=== PATIENT | male | born 1960 | race Caucasian/White ===

== ENCOUNTER 2018-05-26 02:24 | Inpatient (IN) ==
[2018-05-26] MEDS ORDERED: Sod Chloride 0.9% Inj 1,000 ML IV.CONT ONE (04:40)
[2018-05-26 05:29] LABS: Baso # (Auto) 0.1 th/mm3 (0.0-0.2); Baso % (Auto) 0.7 % (0.0-2.0); Eos # (Auto) 0.1 th/mm3 (0.0-0.4); Eos % (Auto) 1.5 % (0.0-4.0); Hematocrit 34.7 % (39.0-51.0); Hemoglobin 11.7 gm/dL (13.0-17.0); Lymph # (Auto) 1.5 th/mm3 (1.0-4.8); Lymph % (Auto) 19.1 % (9.0-44.0); Mean Corpuscular HGB Conc 33.8 % (32.0-36.0); Mean Corpuscular Hemoglobin 30.2 pg (27.0-34.0); Mean Corpuscular Volume 89.4 fL (80.0-100.0); Mean Platelet Volume 7.1 fL (7.0-11.0); Mono # (Auto) 0.9 th/mm3 (0.0-0.9); Mono % (Auto) 11.6 % (0.0-8.0); Neut # (Auto) 5.2 th/mm3 (1.8-7.7); Neut % (Auto) 67.1 % (16.0-70.0); Platelet Count 261 th/mm3 (150-450); Red Blood Count 3.88 mil/mm3 (4.50-5.90); Red Cell Distribution Width 13.6 % (11.6-17.2); White Blood Count 7.7 th/mm3 (4.0-11.0)
[2018-05-26] MEDS ORDERED: ALPRAZolam 0.25 MG Tablet PO PRN (05:36)
[2018-05-26 05:42] LABS: Activated Partial Thrombo Time 25.3 sec (24.3-30.1); INR 1.1 Ratio; Prothrombin Time 10.8 sec (9.8-11.6)
[2018-05-26 05:48] LABS: Alanine Aminotransferase 24 U/L (12-78); Anion Gap 11 meq/L (5-15); Aspartate Aminotransferase 16 U/L (15-37); Blood Urea Nitrogen 46 mg/dL (7-18); Calcium 9.1 mg/dL (8.5-10.1); Chloride 96 meq/L (98-107); Glomerular Filtration Rate 8 mL/min (>89); Glucose,Random 117 mg/dL (74-106); Phosphorus 4.6 mg/dL (2.5-4.9); Potassium 4.2 meq/L (3.5-5.1); Sodium 139 meq/L (136-145)
[2018-05-26 05:51] LABS: Alkaline Phosphatase 71 U/L (45-117); Total Protein 8.3 g/dL (6.4-8.2)
--- NOTE | 2018-05-26 05:52 | P.HPIM ---
History of Present Illness Primary Care Physician: UNKNOWN History of Present Illness: 58-year-old male with a history of end-stage renal disease on dialysis, hyperlipidemia, gout, hypertension, GERD, anxiety who presents for elective renal transplant. Patient says he is feeling well. Denies any chest pain, shortness of breath, nausea, vomiting, lightheadedness, dizziness, fevers, chills, dysuria. Patient denies any history of exertional chest pain. Patient's heart rate is elevated. He says he has been anticipating surgery for over 2 years and is a little anxious. He just discontinued Xanax about a week ago, and feels this may help with his anxiety. Inpatient Certification: I certify that the inpatient services were ordered in accordance with Medicare regulations governing the order. This includes certification that hospital inpatient services are reasonable and necessary and in the case of services not specified as inpatient-only under 42 CFR 419.22(n), that they are appropriately provided as inpatient services in accordance to with the 2-midnight benchmark under 43 CFR 412.3(e) Estimated Total Length of Stay (Days): 4 Plans for Post Hospital Care: Home Review of Systems All other systems reviewed negative except as stated in HPI PMFSH - Medical History Medical History: Medical History (Last Updated 05/26/18 @ 05:48 by Pawel Vera MD) A-V fistula FSGS (focal segmental glomerulosclerosis) GERD (gastroesophageal reflux disease) Gout Hypertension Nephrotic syndrome Rheumatoid arthritis Squamous cell cancer of skin of left hand - Surgical History Surgical History: Surgical History (Last Updated 05/26/18 @ 05:48 by Pawel Vera MD) H/O squamous cell carcinoma excision - Family History Family History: Family History (Last Updated 05/26/18 @ 05:45 by Pawel Vera MD) Mother COPD (chronic obstructive pulmonary disease) Father Skin cancer CKD (chronic kidney disease) Father Hypertension Medications and Allergies Active Medications: Active Medications Sodium Chloride (Ns Inj) 1,000 mls @ 40 mls/hr IV.CONT .Q24H ONE Stop: 05/27/18 04:39 Allergies Allergy/AdvReac Type Severity Reaction Status Date / Time corticotropin Allergy Intermediate Hives Verified 01/31/18 16:27 Home Medications Medication Instructions Recorded Confirmed Type allopurinol 100 mg PO DAILY 05/26/18 05/26/18 History alprazolam [Xanax] 0.25 mg PO BID PRN 05/26/18 05/26/18 History calcium acetate 1,334 mg PO TID 05/26/18 05/26/18 History carvedilol 25 mg PO BID 05/26/18 05/26/18 History cinacalcet [Sensipar] 30 mg PO DAILY 05/26/18 05/26/18 History furosemide 80 mg PO DAILY 05/26/18 05/26/18 History simvastatin 40 mg PO QPM 05/26/18 05/26/18 History Exam Vital signs: Vital Signs 05/26/18 04:41 Temperature 98.2 F Pulse Rate 107 H Respiratory Rate 20 Blood Pressure 108/67 Narrative: GENERAL: Patient lying in bed. Appears comfortable. Alert and oriented x3. SKIN: Warm and dry. HEAD: Atraumatic. Normocephalic. EYES: Pupils equal and round. No scleral icterus. No injection or drainage. ENT: No nasal bleeding or discharge. Mucous membranes pink and moist. NECK: Trachea midline. No JVD. CARDIOVASCULAR: Regular rate and rhythm. RESPIRATORY: No accessory muscle use. Clear to auscultation. Breath sounds equal bilaterally. GASTROINTESTINAL: Abdomen soft, non-tender, nondistended. Hepatic and splenic margins not palpable. MUSCULOSKELETAL: Extremities without clubbing, cyanosis, or edema. No obvious deformities. AV fistula left arm. NEUROLOGICAL: Awake and alert. No obvious cranial nerve deficits. Motor grossly within normal limits. Five out of 5 muscle strength in the arms and legs. Normal speech. PSYCHIATRIC: Appropriate mood and affect; insight and judgment normal. Results - Labs CBC & Chem 7: 05/26/18 05:10 05/26/18 05:10 Labs: Short CBC 05/26/18 Range/Units 05:10 WBC 7.7 (4.0-11.0) th/mm3 Hgb 11.7 L (13.0-17.0) gm/dL Hct 34.7 L (39.0-51.0) % Plt Count 261 (150-450) th/mm3 Caprini VTE Risk Assessment Caprini VTE Risk Assessment: No/Low Risk (score <= 1) Caprini Risk Assessment Model: Point Value = 1 Point Value = 2 Point Value = 3 Point Value = 5 Age 41-60 Minor surgery BMI > 25 kg/m2 Swollen legs Varicose veins or History of unexplained or recurrent spontaneous Oral contraceptives or hormone replacement Sepsis (< 1 month) Serious lung disease, including pneumonia (< 1 month) Abnormal pulmonary function Acute myocardial infarction Congestive heart failure (< 1 month) History of inflammatory bowel disease Medical patient at bed rest Age 61-74 Arthroscopic surgery Major open surgery (> 45 min) Laparoscopic surgery (> 45 min) Malignancy Confined to bed (> 72 hours) Immobilizing plaster cast Central venous access Age >= 75 History of VTE Family history of VTE Factor V Leiden Prothrombin [id number] Lupus anticoagulant Anticardiolipin antibodies Elevated serum homocysteine Heparin-induced thrombocytopenia Other congenital or acquired thrombophilia Stroke (< 1 month) Elective arthroplasty Hip, pelvis, or leg fracture Acute spinal cord injury (< 1 month) Prophylaxis Regimen: Total Risk Factor Score Risk Level Prophylaxis Regimen 0-1 Low Early ambulation 2 Moderate Order ONE of the following: *Sequential Compression Device (SCD) *Heparin 5000 units SQ BID 3-4 Higher Order ONE of the following medications: *Heparin 5000 units SQ TID *Enoxaparin/Lovenox 40 mg SQ daily (WT < 150 kg, CrCl > 30 mL/min) *Enoxaparin/Lovenox 30 mg SQ daily (WT < 150 kg, CrCl > 10-29 mL/min) *Enoxaparin/Lovenox 30 mg SQ BID (WT < 150 kg, CrCl > 30 mL/min) AND/OR *Sequential Compression Device (SCD) 5 or more Highest Order ONE of the following medications: *Heparin 5000 units SQ TID (Preferred with Epidurals) *Enoxaparin/Lovenox 40 mg SQ daily (WT < 150 kg, CrCl > 30 mL/min) *Enoxaparin/Lovenox 30 mg SQ daily (WT < 150 kg, CrCl > 10-29 mL/min) *Enoxaparin/Lovenox 30 mg SQ BID (WT < 150 kg, CrCl > 30 mL/min) AND *Sequential Compression Device (SCD) Assessment and Plan - Plan //Presentation for kidney transplant. //End-stage renal disease on dialysis = Stat labs for admission are ordered. Will hold off on Sensipar, PhosLo, Lasix for now. = Surgery as per transplant surgical service. //Sinus tachycardia. This is likely secondary to anxiety. Follow-up EKG. //Anxiety. Will order Xanax as needed for anxiety. //Hypertension. Chronic. Blood pressure acceptable. Continue carvedilol. Monitor. //Gout. On allopurinol. Will defer to transplant surgery as far as continuing this. //Hyperlipidemia. Chronic. Continue home medications. Discussed Condition With: Patient, nurse, trade show coordinator
[2018-05-26] MEDS ORDERED: Hydrocortisone Sod Succinate 100 MG Vial IV.PUSH PRN (07:37)
--- NOTE | 2018-05-26 07:55 | XR ---
EXAM DATE: 05/26/2018 4:41 AM EDT AGE/SEX: 58 years / Male INDICATIONS: Evaluate for pneumonia, pneumothorax, or communicable disease. Preop chest for possible kidney transplant today CLINICAL DATA: This is the patient's initial encounter. Patient reports that signs and symptoms have been present for 1 day and indicates a pain score of 0/10. MEDICAL/SURGICAL HISTORY: Renal disease. None. COMPARISON: No prior exams available for comparison. FINDINGS: PA and lateral views of the chest demonstrate the lungs to be symmetrically aerated without evidence of mass, infiltrate or effusion. The cardiomediastinal contours are unremarkable. Osseous structures are intact. CONCLUSION: 1. No acute cardiopulmonary disease. Electronically signed by: Kendrick Call MD 05/26/2018 7:54 AM EDT
[2018-05-26] MEDS ORDERED: MethylPREDNISolone Sod Suc Inj 500 MG in Sodium Chlor 0.9% Inj 100 ML IV.SIG SCH (08:00)
[2018-05-26 08:52] VITALS: BP 120/67; PULSE 112; RESP 18; TEMP 98.5; O2SAT 99
[2018-05-26] MEDS ORDERED: Famotidine 20 MG Tablet PO SCH (09:00)
--- NOTE | 2018-05-26 09:00 | P.CONTS ---
History of Present Illness Service: Transplant Surgery Consult date: 05/26/18 Reason for Consult: Admit for possible kidney transplant Primary Care Provider: UNKNOWN Chief Complaint: ESRD History of Present Illness: 58 yom with ESRD due to Htn/FSGS. Admitted for possible donor renal transplant from a 55 yom DCD donor. Review of Systems Constitutional: Denies anorexia, Denies body ache(s), Denies chills, Denies daytime sleepiness, Denies excessive sweating, Denies fatigue, Denies fever(s), Denies headache(s), Denies increased appetite, Denies lack of energy, Denies malaise, Denies night sweats, Denies weakness, Denies weight gain, Denies weight loss, Denies other Eyes: Denies blind spots, Denies blurry vision, Denies bulging eyes, Denies change in vision, Denies double vision, Denies discharge, Denies dry eyes, Denies floaters, Denies irritation, Denies itchy eyes, Denies loss of vision, Denies pain, Denies requires corrective lenses, Denies sensitivity to light, Denies other Ears, Nose, Mouth, and Throat: Denies abnormal hearing, Denies bleeding gums, Denies bad breath, Denies change in voice, Denies dental pain, Denies difficulty swallowing, Denies dizziness, Denies dry mouth, Denies ear discharge , Denies ear pain, Denies facial pain, Denies headache(s), Denies hearing loss, Denies hoarseness, Denies lip swelling, Denies nosebleed, Denies mouth lesions, Denies mouth pain, Denies nasal congestion, Denies nasal discharge, Denies nasal obstruction, Denies nasal trauma, Denies neck lump, Denies neck pain, Denies nose pain, Denies pain with swallowing, Denies poor balance, Denies post nasal drip, Denies ringing in the ears, Denies sinus pain, Denies sinus pressure , Denies sore throat, Denies throat swelling, Denies tongue swelling, Denies other Cardiovascular: Denies chest pain, Denies chest pain at rest, Denies chest pain with activity, Denies excessive sweating, Denies fainting, Denies fast heart rate, Denies foot swelling, Denies generalized swelling, Denies irregular heart rhythm, Denies leg pain with activity, Denies leg sores, Denies leg swelling, Denies lightheadedness, Denies radiating jaw, neck or arm pain, Denies rapid, pounding, or irregular heartbeat, Denies shortness of breath, Denies shortness of breath with activity, Denies shortness of breath when lying down, Denies shortness of breath causing sudden awakening, Denies slow heart rate, Denies other Respiratory: Denies change in phlegm color, Denies chest congestion, Denies cough, Denies coughing up blood, Denies excessive phlegm production, Denies pain on inspiration, Denies pain with cough, Denies shortness of breath, Denies shortness of breath with activity, Denies snoring, Denies stridor, Denies wheezing, Denies other Gastrointestinal: Denies abdominal pain, Denies belching, Denies black, tarry stools, Denies bloating, Denies bright, red blood in stools, Denies change in bowel habits, Denies constant urge to pass stool, Denies change in stools, Denies coffee ground vomit, Denies constipation, Denies cramping, Denies difficulty swallowing, Denies excessive passing of gas, Denies feeling full early, Denies heartburn, Denies incontinent of stools, Denies loose stools, Denies nausea, Denies pain with swallowing, Denies vomiting, Denies vomiting blood, Denies other Genitourinary: Denies blood in semen, Denies blood in urine, Denies decreased urination, Denies difficulty urinating, Denies difficulty with ejaculations, Denies erectile dysfunction, Denies genital lesions, Denies genital pain, Denies painful urination, Denies side pain, Denies frequent nighttime urination , Denies painful ejaculations, Denies penile discharge, Denies scrotal swelling , Denies testicle lump, Denies testicle pain, Denies urinary frequency, Denies urinary hesitancy, Denies urinary incontinence, Denies urinary urgency, Denies other Comments: Makes about 0.5 cup of urine daily Musculoskeletal: Denies abnormal walking, Denies back pain, Denies body aches, Denies decreased muscle mass, Denies deformity, Denies joint pain, Denies joint swelling, Denies limited joint movement, Denies loss of height, Denies muscle cramps, Denies muscle weakness, Denies neck pain, Denies numbness, Denies radiating pain into limb, Denies stiffness, Denies tingling, Denies other Skin/Breast: Denies acne, Denies bleeding lesions, Denies boil, Denies breast swelling, Denies breast skin changes, Denies breast pain, Denies breast lump, Denies change in breast shape, Denies change in hair, Denies change in skin color, Denies changing lesions, Denies dry skin, Denies excessive hair growth, Denies hair loss, Denies itching, Denies lesions, Denies nail changes, Denies new lesions, Denies nipple discharge, Denies non-healing lesions, Denies redness , Denies sensitivity to light, Denies rash, Denies skin pain, Denies skin ulcer , Denies sores, Denies stretch nicolas, Denies unusual bruising, Denies wounds, Denies yellowing of the skin, Denies other Neurologic: Denies abnormal hearing, Denies abnormal movements, Denies abnormal speech, Denies abnormal walking, Denies behavioral changes, Denies burning sensations, Denies confusion, Denies dizziness, Denies fainting, Denies frequent falls, Denies headache(s), Denies lack of coordination, Denies localized weakness, Denies loss of vision, Denies memory loss, Denies numbness, Denies other visual disturbances, Denies radiating pain, Denies restless legs, Denies convulsions, Denies seizure-like activity, Denies sensory deficit, Denies tingling, Denies tingling/numbness/burning sensations, Denies tremor(s), Denies unsteadiness, Denies weakness, Denies other Psychiatric: Denies abnormal sleep pattern, Denies anxiety, Denies behavioral changes, Denies change in appetite, Denies change in sex drive, Denies confusion , Denies depression, Denies difficulty concentrating, Denies hearing things others do not hear, Denies hopelessness, Denies irritability, Denies lack of enjoyment, Denies memory loss, Denies mood swings, Denies panic attacks, Denies paranoia, Denies seeing things others do not see, Denies sensing things others do not sense, Denies tactile hallucinations, Denies thoughts of hurting/killing others, Denies thoughts of hurting/killing yourself, Denies other Endocrine: Denies cold intolerance, Denies excessive sweating, Denies flushing, Denies heat intolerance, Denies increased hunger, Denies increased thirst, Denies increased urination, Denies rapid, pounding, or irregular heartbeat, Denies other Hematologic/Lymphatic: Denies easy bleeding, Denies easy bruising, Denies enlarged lymph nodes, Denies other Allergic/Immunologic: Denies GI upset with certain foods, Denies hives, Denies itchy eyes, Denies lip swelling, Denies seasonal runny nose, Denies throat swelling, Denies tongue swelling, Denies wheezing, Denies other PMFSH - History History Provided By: Patient - Medical History Medical History: Medical History (Last Reviewed 05/26/18 @ 08:50 by Bayron Mccabe MD) A-V fistula FSGS (focal segmental glomerulosclerosis) GERD (gastroesophageal reflux disease) Gout Hypertension Nephrotic syndrome Rheumatoid arthritis Squamous cell cancer of skin of left hand - Surgical History Surgical History: Surgical History (Last Reviewed 05/26/18 @ 08:50 by Bayron Mccabe MD) H/O squamous cell carcinoma excision - Family History Family History: Family History (Last Reviewed 05/26/18 @ 08:50 by Bayron Mccabe MD) Mother COPD (chronic obstructive pulmonary disease) Father Skin cancer CKD (chronic kidney disease) Father Hypertension - Social History I have reviewed the patient's Social History: Yes - Tobacco History Second Hand Smoke Exposure: No Tobacco Use In Past 30 Days: No Smoking Status: Former smoker Tobacco Type: Cigarettes (smoked about 1.5 PPD from teenage years until about age 44) - Alcohol History How Often Do You Have a Drink Containing Alcohol: 2 to 3 times a week - Substance Use History Substance History: No History of Abuse - Travel History History of Recent Travel: No Recent Travel in the [place] Within the Last 8 Weeks: No Recent Travel Out of the Country Within the Last 8 Weeks: No Medications and Allergies Active Medications: Active Medications Alprazolam (Xanax) 0.25 mg PO BID PRN PRN Reason: Anxiety Carvedilol (Coreg) 25 mg PO BID STAN Diphenhydramine HCl (Benadryl Inj) 50 mg IV.PUSH ONCE PRN PRN Reason: anaphylactic reaction Epinephrine HCl (Epinephrine (1:1000) Inj) 0.1 mg IV.PUSH ONCE PRN PRN Reason: SEE LABEL COMMENTS Famotidine (Pepcid) 20 mg PO DAILY [facility] Hydrocortisone Sodium Succinate (Solucortef Inj) 200 mg IV.PUSH ONCE PRN PRN Reason: anaphylactic readtion Sodium Chloride (Ns Inj) 1,000 mls @ 40 mls/hr IV.CONT .Q24H ONE Stop: 05/27/18 04:39 Last Admin: 05/26/18 06:54 Dose: 40 mls/hr Cefazolin Sodium/Dextrose (Ancef 2 Gm Premix Inj) 2 gm in 50 mls @ 100 mls/hr IV.SIG [employer] DISPATCH[employer] [facility] Stop: 05/29/18 07:34 Methylprednisolone Sodium Succinate 500 mg/ Sodium Chloride 108 mls @ 100 mls/ hr IV.SIG EMERG[employer]Y SERVICES DISPATCHER [facility] Stop: 05/29/18 07:32 Lymphocyte Immune Globulin 100 (mg/ Sodium Chloride) 500 mls @ 83.333 mls/hr IV.SIG ONCE ONE Stop: 05/26/18 16:59 Irrigating Solution (Detention Htk Irrigation) 2,000 ml IRRIGATION ONCE ONE Stop: 05/26/18 11:01 Mycophenolate Mofetil (Cellcept) 1,000 mg PO ONCE [facility] Stop: 05/29/18 07:32 Pravastatin Sodium (Pravachol) 80 mg PO QPM [facility] Allergies Allergy/AdvReac Type Severity Reaction Status Date / Time corticotropin Allergy Intermediate Hives Verified 01/31/18 16:27 Home Medications Medication Instructions Recorded Confirmed Type allopurinol 100 mg PO DAILY 05/26/18 05/26/18 History alprazolam [Xanax] 0.25 mg PO BID PRN 05/26/18 05/26/18 History calcium acetate 1,334 mg PO TID 05/26/18 05/26/18 History carvedilol 25 mg PO BID 05/26/18 05/26/18 History cinacalcet [Sensipar] 30 mg PO DAILY 05/26/18 05/26/18 History furosemide 80 mg PO DAILY 05/26/18 05/26/18 History simvastatin 40 mg PO QPM 05/26/18 05/26/18 History Physical Exam Vital signs: Vital Signs 05/26/18 04:20 05/26/18 04:41 Temperature 98.2 F Pulse Rate 100 H 107 H Respiratory Rate 20 Blood Pressure 108/67 Intake & Output 05/25/18 05/26/18 05/26/18 18:59 06:59 18:59 Weight 88 kg Other: Weight On Admission 88 kg - Constitutional no acute distress - Routine HEENT Exam Head: Present: normocephalic, atraumatic Eye: Present: EOMI ENT: Present: mucous membranes moist - Routine Neck Exam Present: supple, full ROM - Routine Respiratory Exam Present: CTA bilaterally Comments: no carotid bruits - Routine Cardiovascular Exam Present: RRR, S1, S2 - Routine Abdominal Exam Present: soft, normoactive bowel sounds - Routine Exam Comments: no scrotal masses. No inguinal hernias - Routine Extremities Exam Present: pulses intact Comments: palpable femoral/ DP/PT pulses bilaterally - Routine Skin Exam Present: intact - Routine Neurological Exam Present: alert, oriented X3 - Detailed Neurological Exam: Coma Scale Verbal Response: Oriented - Routine Psychiatric Exam Present: normal affect, normal thought process Assessment and Plan - Plan Patient admitted for a possible DCD transplant from a 57 yom DCD donor. Patient had some reservations about proceeding due to donor age and DCD status. After informed discussion, he decided not to proceed with the transplant. Hospitalist informed. Patient will be discharged home.
[2018-05-26] MEDS: Carvedilol 12.5 MG Tablet PO SCH ×2 (10:24→10:47)
--- NOTE | 2018-05-26 10:51 | P.PNIM ---
Subjective Interval history: admitted for elective kidney transplant however the patient decided not to have the surgery. already has got ready to leave. no complaints. Physical Exam Vital signs: Vital Signs 05/26/18 04:20 05/26/18 04:41 05/26/18 07:00 Temperature 98.2 F 98.5 F Pulse Rate 100 H 107 H 111 H Respiratory Rate 20 18 Blood Pressure 108/67 120/67 Pulse Oximetry 99 Intake & Output 05/25/18 05/26/18 05/26/18 18:59 06:59 18:59 Weight 88 kg Other: Weight On Admission 88 kg - Constitutional no acute distress - Routine Respiratory Exam Present: CTA bilaterally - Routine Cardiovascular Exam Present: RRR - Routine Abdominal Exam Present: soft - Routine Extremities Exam Comments: no pedal edema. - Routine Neurological Exam Present: alert, oriented X3 Results - Labs CBC & Chem 7: 05/26/18 05:10 05/26/18 05:10 Laboratory Results - last 24 hr 05/26/18 05/26/18 05/26/18 05:10 05:10 05:10 WBC 7.7 RBC 3.88 L Hgb 11.7 L Hct 34.7 L MCV 89.4 MCH 30.2 MCHC 33.8 RDW 13.6 Plt Count 261 MPV 7.1 Neut % (Auto) 67.1 Lymph % (Auto) 19.1 [place] % (Auto) 11.6 H Eos % (Auto) 1.5 Baso % (Auto) 0.7 Neut # (Auto) 5.2 Lymph # (Auto) 1.5 [place] # (Auto) 0.9 Eos # (Auto) 0.1 Baso # (Auto) 0.1 WBC Differential . Differential Comment Auto diff final PT 10.8 INR 1.1 APTT 25.3 Sodium 139 Potassium 4.2 Chloride 96 L Carbon Dioxide 32.0 Anion Gap 11 BUN 46 H Creatinine 7.36 H Estimated GFR 8 L Random Glucose 117 H Calcium 9.1 Phosphorus 4.6 Total Bilirubin 0.4 AST 16 ALT 24 Alkaline Phosphatase 71 Total Protein 8.3 H Albumin 4.0 Blood Type Antibody Screen MTS Gel Crossmatch 05/26/18 06:45 WBC RBC Hgb Hct MCV MCH MCHC RDW Plt Count MPV Neut % (Auto) Lymph % (Auto) [place] % (Auto) Eos % (Auto) Baso % (Auto) Neut # (Auto) Lymph # (Auto) [place] # (Auto) Eos # (Auto) Baso # (Auto) WBC Differential Differential Comment PT INR APTT Sodium Potassium Chloride Carbon Dioxide Anion Gap BUN Creatinine Estimated GFR Random Glucose Calcium Phosphorus Total Bilirubin AST ALT Alkaline Phosphatase Total Protein Albumin Blood Type O Positive Antibody Screen Negative MTS Gel Crossmatch See Detail - Imaging Impressions Chest X-Ray 05/26/18 04:41 CONCLUSION: 1. No acute cardiopulmonary disease. Assessment and Plan - Plan Presentation for kidney transplant. End-stage renal disease on dialysis patient decided not to have the surgery; d/w today and patient was cleared for discharge per transplant surgery. atrial fibrillation- mildly tachycardic- asymptomatic d/w his living advisor ( @ [phone]); per his recommendations he could be discharged with f/u with his office tomorrow and this was d/w the patient. Coreg will be increased to 25 mg in am and 12.5 mg in the evening per 's recommendations. Hypertension. Chronic. Blood pressure acceptable. Continue carvedilol. Monitor. Gout. On allopurinol. Will defer to transplant surgery as far as continuing this. Hyperlipidemia. Chronic. Continue home medications. Discharge Planning: dc home today. see med list. f/u; pcp, cardiology, nephrology and transplant surgery. d/w the patient, RN, and .
[2018-05-26] MEDS ORDERED: ceFAZolin 2 GM Premix Inj 2 GM/50 ML PIGGYBACK IV.SIG SCH (11:00)
[2018-05-26] MEDS ORDERED: ANTITHYMOCYTE IG IV.SIG ONE (11:00)
[2018-05-26] MEDS ORDERED: SODIUM CHLOR 0.9% IV.SIG ONE (11:00)
[2018-05-26] MEDS ORDERED: CUST1000P IRRIGATION ONE (11:00)
--- NOTE | 2018-05-26 22:17 | ECG ---
Date Performed: 05/26/2018 Time Performed: 05:33:24 PTAGE: 58 years EKG: Atrial fibrillation with rapid ventricular response ST junctional depression is nonspecific Abnormal ECG NO PREVIOUS TRACING DOCTOR: Kusum Hartman Interpretating Date/Time 05/26/2018 22:15:49
== END 2018-05-26 11:05 | disposition home or self-care (01) ==
LOC: HCVI 03:55
PROVIDERS: ADMIT Internal Medicine; ATTEND Internal Medicine
CPT/HCPCS: 71020; 71046; 80053; 84100; 85025; 85610; 85730; 86850; 86900; 86901; 86923; 93005; J7030